=== PATIENT | male | born 1970 | race Caucasian/White ===

== ENCOUNTER 2023-06-11 11:31 | Day surgery (SDC) | payer BC, SELFPAY ==
[2023-06-11] VITALS (7 sets, daily range): BP systolic 107–150; BP diastolic 73–88; PULSE 50–68; RESP 16; TEMP 36.6–36.9; O2SAT 97–99; BMI 25.1
[2023-06-11] MEDS: Lactated Ringers 1,000 ML 15 ML IV (11:59)
--- NOTE | 2023-06-11 12:14 | H&P.OPEN ---
HPI - General HPI Narrative FABRIZIO DICK, is a 53 M who presents for screening colonoscopy. Patient reports that his mother had part of her colon removed for polyps but does not believe they are cancerous. He denies any abdominal pain or blood in the stool. He has never had a colonoscopy. [facility] Medical History Asthma High cholesterol Non-smoker Wears contact lenses Home Medications NK 05/29/23 [History Last Taken Unknown] Allergy/AdvReac Type Severity Reaction Status Date / Time amoxicillin Allergy Rash Verified 06/11/23 11:39 Family History (Updated 05/29/23 @ 10:36 by Michaelle Holden) Mother Colon polyps Surgical History History of hernia surgery Social History (Updated 05/29/23 @ 10:36 by Michaelle Holden) household members: spouse current occupational status: employed current occupation: [employer] Smoking Status: Never smoker Past Medical/Surgical History Planned Operation Planned Operative Procedure/s: COLONOSCOPY Previous Hospitalizations/Surgeries HX Hospitalizations: No Any Problems With Anesthesia: No You/Your Family Experience Fever (Hyperthermia) With Anes: No Cholinesterase deficiency: No Cardiovascular Hx Hypertension: No Respiratory Hx Sleep Apnea: No Hx Respiratory Tract Infection/Cold (presently): No Do You Snore Loudly (louder than talking or can be heard): No Do You Often Feel Tired/ Fatigued/ Sleepy Dring Daytime?: No Has Anyone Observed You Stop Breathing During Sleep?: No Result (for STOP score): Negative Smoking Status: Never smoker Neurological Does patient have nerve stimulator: No Miscellaneous Recent Exposure to Contagious Disease: No Allergies amoxicillin Allergy (Verified 06/11/23 11:39) Rash Discharge Is Pt Admitted From a Assisted, or a M[facility]: No Who Could Help: After D/C, Where Do you Plan to Go: Return Home Vital Signs Vital Signs Vital Signs: 06/11/23 11:50 06/11/23 11:50 Temperature 98.4 F Temperature Source Temporal Pulse Rate 64 Respiratory Rate 16 Respiratory Pattern Normal Blood Pressure 150/88 H Blood Pressure Mean 108 Blood Pressure Source Monitor Blood Pressure Position Semi-Fowlers Blood Pressure Location Left Arm Pulse Ox 99 Oxygen Delivery Method Room Air Weight Weight: 170 lb 3.15 oz Body Mass Index (BMI) 25.1 Physical Exam Const alert and oriented x3 HEENT normocephalic Eyes PERRL Resp normal respiratory effort and normal air movement Cardio regular rate and regular rhythm GI soft to palpation, non-tender and non-distended Extremity normal to inspection Assessment & Plan Assessment/Plan (1) Encounter for screening for malignant neoplasm of colon: PLAN: I explained endoscopy in detail to the patient. I explained the risks including but not limited to stroke or heart attack with anesthesia, perforation of the GI tract, bleeding, infection. I explained that any of these could necessitate further emergency surgery. The patient understands and all questions were answered sufficiently. The patient wishes to proceed with procedure. Cj Youngblood MD Pager: [facility] [address] [place] [address], [address] [place] [address] Office: Surgery Risks - Colonoscopy Risks Include but are not Limited To: Risks include but are not limited to: Bleeding, perforation requiring further surgery, inability to complete colonoscopy requiring barium enema.
--- NOTE | 2023-06-11 13:06 | OP.COLON_ITS ---
Patient Name: Ventura Puente Procedure Date: 06/11/2023 12:29 PM Date of : 1970 Age: 53 Procedure: Colonoscopy Indications: Screening for colorectal malignant neoplasm Providers: Cj Youngblood MD Medicines: Monitored Anesthesia Care Patient Profile: This is a 53 year old male. Refer to note in patient chart for documentation of history and physical. Last Colonoscopy: none. The patient's first colonoscopy is today. Complications: No immediate complications. Procedure: Pre-Anesthesia Assessment: - Prior to the procedure, a History and Physical was performed, and patient medications and allergies were reviewed. The patient's tolerance of previous anesthesia was also reviewed. The risks and benefits of the procedure and the sedation options and risks were discussed with the patient. All questions were answered, and informed consent was obtained. Prior Anticoagulants: The patient has taken no anticoagulant or antiplatelet agents. After reviewing the risks and benefits, the patient was deemed in satisfactory condition to undergo the procedure. After I obtained informed consent, the scope was passed under direct vision. Throughout the procedure, the patient's blood pressure, pulse, and oxygen saturations were monitored continuously. The pediatric colonoscope was introduced through the anus and advanced to the cecum, identified by appendiceal orifice and ileocecal valve. The colonoscopy was performed without difficulty. The patient tolerated the procedure well. The quality of the bowel preparation was good. The ileocecal valve, appendiceal orifice, and rectum were photographed. Scope In: 12:50:04 PM Scope Withdrawal Time 0 hours 6 minutes 18 seconds Scope Out: 1:00:41 PM Total Procedure Duration Time 0 hours 10 minutes 37 seconds Findings: The entire examined colon appeared normal on direct and retroflexion views. Impression: - The entire examined colon is normal on direct and retroflexion views. - No specimens collected. Recommendation: - Discharge patient to home. - Resume previous diet. - Continue present medications. - Repeat colonoscopy in 10 years for screening purposes. Procedure Code(s): --- Professional --- 51017, Colonoscopy, flexible; diagnostic, including collection of specimen(s) by brushing or washing, when performed (separate procedure) Diagnosis Code(s): --- Professional --- Z12.11, Encounter for screening for malignant neoplasm of colon CPT copyright 2021 [employer]. All rights reserved. The codes documented in this report are preliminary and upon lower school music teacher review may be revised to meet current compliance requirements. Cj Youngblood MD 06/11/2023 1:05:33 PM This report has been signed electronically. Number of Addenda: 0 Note Initiated On: 06/11/2023 12:29 PM
--- NOTE | 2023-06-11 13:06 | OP.CCLET_ITS ---
06/11/2023 Eleuterio Echevarria Re : Colonoscopy procedure for Ventura Puente Dear Wale This procedure was performed on Sunday, June 11, 2023. My impressions and recommendations are as follows: Impressions : - The entire examined colon is normal on direct and retroflexion views. - No specimens collected. Recommendations : - Discharge patient to home. - Resume previous diet. - Continue present medications. - Repeat colonoscopy in 10 years for screening purposes. My findings are described in the full procedure note, which is enclosed. If I can be of further assistance, please feel free to contact me at Doctor phone number(s): , Work: . Sincerely, Cj Youngblood MD 06/11/2023 1:05:33 PM This report has been signed electronically.
== END 2023-06-11 13:58 | disposition home or self-care (01) ==
LOC: EN 11:34 → AC 11:35
PROVIDERS: Visit Provider Surgery
PROC: 0DJD8ZZ Inspection of Lower Intestinal Tract, Via Natural or Artificial Opening Endoscopic (ICD-10-PCS; CPT 45378; principal; 2023-06-11 12:25)
DX: Z12.11 Encounter for screening for malignant neoplasm of colon (principal)
CPT/HCPCS: 45378; J7120; J2405

== ENCOUNTER → 2025-05-13 | Outpatient (CLI) | payer BC, SELFPAY ==
--- NOTE | 2025-05-13 17:50 | CT_ITS ---
PROCEDURE: SINUS/FACIAL BONE 05/13/2025 REASON FOR EXAM: SINUSITITS History of nasal polyps. History of prior nasal polyp removal TECHNIQUE: Procedure Code: CTSI Modality: CT Procedure: SINUS/FACIAL BONE Coronal and Sagittal reconstruction series were provided. One or more dose reduction techniques were used (e.g., Automated exposure control, adjustment of the mA and/or kV according to patient size, use of iterative reconstruction technique). RADIATION DOSE SUMMARY: CTDlvol: 33.06 mGy DLP: 800.79 mGycm COMPARISON: None FINDINGS: Frontal: Opacification of the frontal sinuses bilaterally. Ethmoid: Opacification of the ethmoid sinuses bilaterally with thinning of the bony septations. Sphenoid: Focal mucosal prominence along the anterior aspect of the sphenoid sinus. Maxillary: Opacification of the right maxillary sinus and mucosal thickening of the left maxillary sinus. There is obliteration of the right ostiomeatal complex with soft tissue prominence. The soft tissue progresses into the right nasal fossa. This is suggestive of polyposis. Turbinates: Enlargement of the inferior turbinate in the left nasal fossa. Nasal Septum: Nasal septum is midline. Mastoids/Middle Ears: Clear. Findings in keeping with nasal polyposis worse in the right nasal fossa. CT/Sinus/Facial Bone IMPRESSION: Pansinusitis with evidence of nasal polyposis worse in the right nasal fossa. Reading Location: [id number]
--- OUTSIDE RECORDS SUMMARY | 2025-05-13 17:50 | XMS RPT_ITS | CCD ---
Author Organization [facility] Care Team Providers Care Operations Asst Name Role Phone Dr. Eleuterio Echevarria Primary Care Provider Unavaila ble Michaelle Holden Attending Provider Unavailable Dr. Cj Youngblood Attending Provider [phone] Dr. Cj Youngblood Other Provider Care Physician, No Primary Primary Care Provider Unavailable Care Physician, No Primary Referring Provider Un available Michaelle Holden Attending Unavailable Eleuterio Echevarria Primary Care Unavailable Care Physician, No Primary Primary Care Unava ilable Care Physician, No Primary Referring Unava ilCj Shah Consulting Unavailable Cj Youngblood Attending Unavailable Care Physician, No Primary Primary Care Unava ilable Care Physician, No Primary Referring Unava ilCj Shah Attending Unavailable Allergies Allergy Classification Reported Allergen(s) Allergy Type Date of Onset Reaction(s) Facility (1 source) Amoxicillin Drug Allergy 06-11-2023 Rash [facility] (1 source) Amoxicillin Drug Allergy 06-11-2023 [facility] Repository Problems Problem Classification Problem Date Documented Da te Episodic/Chronic Other screening for suspected conditions (not mental disorders or infectious disease) (4 sources) Patient encounter status; Translations: [Encounter for screening for malignant neoplasm of colon] Onset: 06-17-2023 05-29-2023 Episodic Results Test Name Value Interpretation Reference Range Facil ity Colonoscopy Reporton 023 Colonoscopy Report [facility] Medical Records Department [address] [place] [address] Colonoscopy Report MR#: [id number] Acct: [id number] Name: FABRIZIO PUENTE Rep #: [id number] : 1970 53 From: Cj Youngblood MD PCP: Care Physician,No Primary Status:[facility] Patient Name: Fabrizio Puente Procedure Date: 06/11/2023 12:29 PM Date of : 1970 Age: 53 Procedure: Colonoscopy Indications: Screening for colorectal malignant neoplasm Providers: Cj Youngblood MD Medicines: Monitored Anesthesia Care Patient Profile: This is a 53 year old male. Refer to note in patient chart for documentation of history and physical. Last Colonoscopy: none. The patient's first colonoscopy is today. Complications: No immediate complications. Procedure: Pre-Anesthesia Assessment: - Prior to the procedure, a History and Physical was performed, and patient medications and allergies were reviewed. The patient's tolerance of previous anesthesia was also reviewed. The risks and benefits of the procedure and the sedation options and risks were discussed with the patient. All questions were answered, and informed consent was obtained. Prior Anticoagulants: The patient has taken no anticoagulant or antiplatelet agents. After reviewing the risks and benefits, the patient was deemed in satisfactory condition to undergo the procedure. After I obtained informed consent, the scope was passed under direct vision. Throughout the procedure, the patient's blood pressure, pulse, and oxygen saturations were monitored continuously. The pediatric colonoscope was introduced through the anus and advanced to the cecum, identified by appendiceal orifice and ileocecal valve. The colonoscopy was performed without difficulty. The patient tolerated the procedure well. The quality of the bowel preparation was good. The ileocecal valve, appendiceal orifice, and rectum were photographed. Scope In: 12:50:04 PM Scope Withdrawal Time 0 hours 6 minutes 18 seconds Scope Out: 1:00:41 PM Total Procedure Duration Time 0 hours 10 minutes 37 seconds Findings: The entire examined colon appeared normal on direct and retroflexion views. Impression: - The entire examined colon is normal on direct and retroflexion views. - No specimens collected. Recommendation: - Discharge patient to home. - Resume previous diet. - Continue present medications. - Repeat colonoscopy in 10 years for screening purposes. Procedure Code(s): --- Professional --- 37965, Colonoscopy, flexible; diagnostic, including collection of specimen(s) by brushing or washing, when performed (separate procedure) Diagnosis Code(s): --- Professional --- Z12.11, Encounter for screening for malignant neoplasm of colon CPT copyright 2021 [employer] [place] [employer]. All rights reserved. The codes documented in this report are preliminary and upon wincher review may be revised to meet current compliance requirements. Cj Youngblood MD 06/11/2023 1:05:33 PM This report has been signed electronically. Number of Addenda: 0 Note Initiated On: 06/11/2023 12:29 PM 06/11/23 1305 Date Cj Youngblood MD Cosigner Signature: Date (if indicated) CC: Dr. Cj Youngblood MD; Dr. Eleuterio Echevarria MD; No Primary Care Physician Date Dictated: 06/11/23 1229 Date Transcribed: Geothermal Heat Pump Machinist: KELBY Solomon [facility] Vital Signs Date Time Vital Sign Value Performing Clinician Faci lity 06-11-2023 13:25-0500 Body temperature 97.9 [degF] Dr. Mcclellan [facility] 06-11-2023 13:25-0500 Diastolic blood pressure 81 mm[Hg] Dr. Mcclellan [facility] 06-11-2023 13:25-0500 Heart rate 55 /min Dr. Mcclellan [facility] 06-11-2023 13:25-0500 Respiratory rate 16 /min Dr. Mcclellan [facility] 06-11-2023 13:25-0500 SaO2% (BldA) [Mass fraction] 98 % Dr. Mcclellan [facility] 06-11-2023 13:25-0500 Systolic blood pressure 122 mm[Hg] Dr. Mcclellan [facility] 06-11-2023 11:50-0500 Body height 175.[address] Mcclellan [facility] 06-11-2023 11:50-0500 Body mass index (BMI) [Ratio] 25.1 kg/m2 Dr. Eleuterio [facility] 06-11-2023 11:50-0500 Body weight 77.[address] Eleuterio Echevarria [facility] 05-29-2023 10:40-0500 Body mass index (BMI) [Ratio] 24.3 kg/m2 Dr. Mcclellan [facility] 05-29-2023 10:40-0500 Body weight 74.[address] Eleuterio Echevarria [facility] Encounters Encounter Date Encounter Type Care Provider Facility Start: 06-11-2023 End: 06-11-2023 ambulatory No Primary Care Physician Facility:[facility] Start: 06-11-2023 Non-patient / Non-visit Dr. Eleuterio english [facility] Start: 06-11-2023 End: 06-11-2023 Admission to same day surgery center Dr. Mcclellan [facility] Work Phone: Start: 06-11-2023 End: 06-11-[address] Mcclellan [facility] Work Phone: Start: 05-29-2023 ambulatory [facility] Facility:[facility] Start: 05-29-2023 Non-patient / Non-visit Dr. Eleuterio english [facility] Work Phone: Procedures Date Procedure Procedure Detail Performing Clinician Start: 06-11-[address] Eleuterio Echevarria Plan of Treatment Date Care Activity Detail Author Start: 06-11-2023 Patient discharge [facility] Colonoscopy [facility] Patient referral [facility] Work Phone: Payers Date Payer Category Payer Self-pay [id number] 2023 Unknown [id number] Unknown [employer] TPA [id number] Unknown [id number] Unknown [id number] Unknown [id number] Social History Date Type Detail Facility [facility]: [facility] Start: 1970 Sex Assigned At Male [facility] Goals Date Patient Goal Desired Activity /State Mental Status Date Assessment Result Facility 06-11-2023 Cognitive function Voice/Name [facility] Work Phone: Clinical Note 06-11-2023 Note Date & Type Note Facility 06-11-2023 Note [facility] Medical Records Department [address] [place] [address] History Physical Exam 06/11/23 1214 MR#: [id number] Acct: [id number] Name: FABRIZIO PUENTE Rep #: [id number] : 1970 53 From: Cj Youngblood MD PCP: Care Physician,No Primary Status:[facility] Location: [place] [address] HPI - General HPI Narrative FABRIZIO PUENTE, is a 53 M who presents for screening colonoscopy. Patient reports that his mother had part of her colon removed for polyps but does not believe they are cancerous. He denies any abdominal pain or blood in the stool. He has never had a colonoscopy. [facility] Medical History Asthma High cholesterol Non-smoker Wears contact lenses Home Medications NK 05/29/23 [History Last Taken Unknown] Allergy/AdvReac Type Severity Reaction Status Date / Time amoxicillin Allergy Rash Verified 06/11/23 11:39 Family History (Updated 05/29/23 @ 10:36 by Michaelle Holden) Mother Colon polyps Surgical History History of hernia surgery Social History (Updated 05/29/23 @ 10:36 by Michaelle Holden) household members: spouse current occupational status: employed current occupation: [employer] Smoking Status: Never smoker Past Medical/Surgical History Planned Operation Planned Operative Procedure/s: COLONOSCOPY Previous Hospitalizations/Surgeries HX Hospitalizations: No Any Problems With Anesthesia: No You/Your Family Experience Fever (Hyperthermia) With Anes: No Cholinesterase deficiency: No Cardiovascular Hx Hypertension: No Respiratory Hx Sleep Apnea: No Hx Respiratory Tract Infection/Cold (presently): No Do You Snore Loudly (louder than talking or can be heard): No Do You Often Feel Tired/ Fatigued/ Sleepy Dring Daytime?: No Has Anyone Observed You Stop Breathing During Sleep?: No Result (for STOP score): Negative Smoking Status: Never smoker Neurological Does patient have nerve stimulator: No Miscellaneous Recent Exposure to Contagious Disease: No Allergies amoxicillin Allergy (Verified 06/11/23 11:39) Rash Discharge Is Pt Admitted From a Care Home, or a Half-Way: No Who Could Help: After D/C, Where Do you Plan to Go: Return Home Vital Signs Vital Signs Vital Signs: 06/11/23 11:50 06/11/23 11:50 Temperature 98.4 F Temperature Source Temporal Pulse Rate 64 Respiratory Rate 16 Respiratory Pattern Normal Blood Pressure 150/88 H Blood Pressure Mean 108 Blood Pressure Source Monitor Blood Pressure Position Semi-Fowlers Blood Pressure Location Left Arm Pulse Ox 99 Oxygen Delivery Method Room Air Weight Weight: 170 lb 3.15 oz Body Mass Index (BMI) 25.1 Physical Exam Const alert and oriented x3 HEENT normocephalic Eyes PERRL Resp normal respiratory effort and normal air movement Cardio regular rate and regular rhythm GI soft to palpation, non-tender and non-distended Extremity normal to inspection Assessment Plan Assessment/Plan (1) Encounter for screening for malignant neoplasm of colon: PLAN: I explained endoscopy in detail to the patient. I explained the risks including but not limited to stroke or heart attack with anesthesia, perforation of the GI tract, bleeding, infection. I explained that any of these could necessitate further emergency surgery. The patient understands and all questions were answered sufficiently. The patient wishes to proceed with procedure. Cj Youngblood MD Pager: [facility] [address] [place] [address], [address] [place] [address] Office: Surgery Risks - Colonoscopy Risks Include but are not Limited To: Risks include but are not limited to: Bleeding, perforation requiring further surgery, inability to complete colonoscopy requiring barium enema. 06/11/23 1215 Cosigner Signature (if applicable): CC: Dr. Cj Youngblood MD; No Primary Care Physician Signed [facility] Procedure note 06-11-2023 Note Date & Type Note Facility 06-11-2023 Procedure note [facility] Procedure note 06-11-2023 Note Date & Type Note Facility 06-11-2023 Procedure note [facility] Evaluation note Note Date & Type Note Facility Evaluation note Diagnosis Onset Date Encounter for screening for malignant neoplasm of colon acute [facility] Work Phone: History and physical note Note Date & Type Note Facility History and physical note Note Date/Time June 11, 2023 12:16pm [facility] Medical Records Department [address] [place] [address] History & Physical Exam 06/11/23 1214 MR#: [id number] Acct: [id number] Name: FABRIZIO PUENTE Rep #:[id number] : 1970 53 From: Cj cohen MD PCP: Care Physician,No Primary Status :[facility] Location: [place] [address] HPI - General HPI Narrative FABRIZIO PUENTE, is a 53 M who presents for screening colonoscopy. Patient reportsthat his mother had part of her colon removed for polyps but does not believe they are cancerous. He denies any abdominal pain or blood in the stool. He hasnever had a colonoscopy. [facility] Medical History Asthma High cholesterol Non-smoker Wears contact lenses Home Medications NK 05/29/23 [History Last Taken Unknown] Allergy/AdvReac Type Severity Reaction Status Date / Time amoxicillin Allergy Rash Verified 06/11/23 11:39 Family History (Updated 05/29/23 @ 10:36 by Michaelle Holden) Mother Colon polyps Surgical History History of hernia surgery Social History (Updated 05/29/23 @ 10:36 by Michaelle Holden) household members: spouse current occupational status: employed current occupation: [employer] Smoking Status: Never smoker Past Medical/Surgical History Planned Operation Planned Operative Procedure/s: COLONOSCOPY Previous Hospitalizations/Surgeries HX Hospitalizations: No Any Problems With Anesthesia: No You/Your Family Experience Fever (Hyperthermia) With Anes: No Cholinesterase deficiency: No Cardiovascular Hx Hypertension: No Respiratory Hx Sleep Apnea: No Hx Respiratory Tract Infection/Cold (presently): No Do You Snore Loudly (louder than talking or can be heard): No Do You Often Feel Tired/ Fatigued/ Sleepy Dring Daytime?: No Has Anyone Observed You Stop Breathing During Sleep?: No Result (for STOP score): Negative Smoking Status: Never smoker Neurological Does patient have nerve stimulator: No Miscellaneous Recent Exposure to Contagious Disease: No Allergies amoxicillin Allergy (Verified 06/11/23 11:39) Rash Discharge Is Pt Admitted From a Care Home, or a Half-Way: No Who Could Help: After D/C, Where Do you Plan to Go: Return Home Vital Signs Vital Signs Vital Signs: 06/11/23 11:50 06/11/23 11:50 Temperature 98.4 F Temperature Source Temporal Pulse Rate 64 Respiratory Rate 16 Respiratory Pattern Normal Blood Pressure 150/88 H Blood Pressure Mean 108 Blood Pressure Source Monitor Blood Pressure Position Semi-Fowlers Blood Pressure Location Left Arm Pulse Ox 99 Oxygen Delivery Method Room Air Weight Weight: 170 lb 3.15 oz Body Mass Index (BMI) 25.1 Physical Exam Const alert and oriented x3 HEENT normocephalic Eyes PERRL Resp normal respiratory effort and normal air movement Cardio regular rate and regular rhythm GI soft to palpation, non-tender and non-distended Extremity normal to inspection Assessment & Plan Assessment/Plan (1) Encounter for screening for malignant neoplasm of colon: PLAN: I explained endoscopy in detail to the patient. I explained the risks including but not limited to stroke or heart attack with anesthesia, perforationof the GI tract, bleeding, infection. I explained that any of these could necessitate further emergency surgery. The patient understands and all questions were answered sufficiently. The patient wishes to proceed with procedure. Cj Youngblood MD Pager: [facility] [address] [place] [address], [address] [place] [address] Office: Surgery Risks - Colonoscopy Risks Include but are not Limited To: Risks include but are not limited to: Bleeding, perforation requiring further surgery, inability to complete colonoscopy requiring barium enema. 06/11/23 1215 <Electronically signed by Cj Youngblood MD> Cosigner Signature (if applicable): CC: Dr. Cj Youngblood MD; No Primary Care Physician~ Signed [facility] Work Phone: Chief Complaint and Reason for Visit Chief Complaint Amb Documentation Reason for Visit Encounter for screen ing for malignant neoplasm of colon Advance Directives No Advanced Directives Records Found Advance Directive Response Recorded Date/ Time Living Will No June 09, 023 9:29am Power of Landscape Drafter No June 09, 2023 9:29am Summary Purpose Family History No Family History Records Found Additional Source Comments Care Teams (unrecognized sec tion and content) Team Status: Active Member Role Status Dates Inga Milan MD Family Provider Active No Primary Care Physician Primary Care Provider Active Team Status: Active Member Role Status Dates Dr. Eleuterio Echevarria MD Primary Care Provider Active [facility] Attending Provider Active Team Status: Active Member Role Status Dates Dr. Cj Youngblood MD Attending Provider, Other Provider Active No Primary Care Physician Primary Care Provider, Refer ring Provider Active Team Status: Inactive Member Role Status Dates Dr. Cj Youngblood MD Attending Provider Active No Primary Care Physician Primary Care Provider, Refer ring Provider Active (unrecognized sect ion and content) No Status Records Found INFORMATION SOURCE (unrecogn ized section and content) DATE CREATED AUTHOR 06/19/2023 [facility] FOR RECORDS PERTAINING TO PATIENTS WHO ARE OR HAVE BEEN ENROLLED IN A CHEMICAL DEPENDENCY/SUBSTANCEABUSE PROGRAM, SOME INFORMATION MAY BE OMITTED. This clinical summary was aggregated from multiple sources. Caution should be exercised in using it in the provision of clinical care. This summary normalizes information from multiple sources, and as a consequence, information in this document may materially change the coding, format and clinical context of patient data. In addition, data may be omitted in some cases. CLINICAL DECISIONS SHOULD BE BASED ON THE PRIMARY CLINICAL RECORDS. [employer] provides no warranty or guarantee of the accuracy or completeness of information in this document.
== END | disposition home or self-care (01) ==
LOC: CT 17:48
PROVIDERS: Referring Provider Otolaryngology; Visit Provider Otolaryngology
DX: J32.8 Other chronic sinusitis (principal); J33.9 Nasal polyp, unspecified
CPT/HCPCS: 70486

== ENCOUNTER 2025-06-27 06:59 | Day surgery (SDC) | payer BC, SELFPAY ==
--- NOTE | 2025-06-24 06:38 | EKG12_ITS ---
Test Reason : PREOP Blood Pressure : */* mmHG Vent. Rate : 55 BPM Atrial Rate : 55 BPM P-R Int : 136 ms QRS Dur : 104 ms QT Int : 444 ms P-R-T Axes : 44 64 72 degrees QTcB Int : 424 ms Sinus bradycardia Otherwise normal ECG Confirmed by KARYN GONZALES, VEENA ([id number]), photo editor AGATA MCCALLUM ([id number]) on 06/24/2025 11:42:37 AM Referred By: Joseph Kumar Confirmed By: VEENA BOSS MD
[2025-06-24 08:06] LABS: Hematocrit 41.6 % (40-54); Hemoglobin 14.5 g/dL (13.0-16.5); Mean Corp Hgb Conc 34.9 g/dL (32-36); Mean Corpuscular Volume 88.3 fL (80-94); Mean Platelet Vol. 9.2 fl (6.2-12.0); Platelet Count 210 K/mm3 (150-450); RBC Distribution Width CV 13.2 % (11.6-14.6); RBC Distribution Width SD 42.9 fl (35.1-43.9); Red Blood Count 4.71 M/mm3 (4.6-6.2); White Blood Count 8.9 K/mm3 (4.4-11.0)
[2025-06-24 08:39] LABS: Anion Gap 10 (5-15); BUN 14 mg/dL (4-19); BUN/Creat Ratio 14.3 RATIO (10-20); Calcium,Total 9.9 mg/dL (7.6-11.0); Carbon Dioxide 26.5 mmol/L (21.0-32.0); Chloride 103 mmol/L (98-108); Glucose 106 mg/dL (70-99); Potassium 3.9 mmol/L (3.3-5.1)
[2025-06-27] VITALS (9 sets, daily range): BP systolic 134–157; BP diastolic 85–107; PULSE 53–69; RESP 14–20; TEMP 36.3–36.9; O2SAT 96–99; BMI 27.3
--- OUTSIDE RECORDS SUMMARY | 2025-06-27 07:02 | XMS RPT_ITS | CCD ---
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 Eleuterio Echevarria Primary Care Provider UnavailMichaelle Harmon Attending Provider Unavailable Dr. Cj Youngblood Attending Provider [phone] Dr. Cj Youngblood Other Provider Care Physician, No Primary Primary Care Provider Unavailable Care Physician, No Primary Referring Provider Un available Joseph Kumar Attending Unavailable Joseph Kumar Referring Unavailable Care Physician, No Primary Primary Care Unava ilable Joseph Kumar Referring Unavailable Care Physician, No Primary Primary Care Unava ilable Joseph Kumar Attending Unavailable Allergies Allergy Classification Reported Allergen(s) Allergy Type Date of Onset Reaction(s) Facility (1 source) Amoxicillin Drug Allergy 06-11-2023 Rash [facility] (1 source) Amoxicillin Drug Allergy 06-11-2023 [facility] Repository Problems Problem Classification Problem Date Documented Da te Episodic/Chronic Other screening for suspected conditions (not mental disorders or infectious disease) (2 sources) Patient encounter status; Translations: [Encounter for screening for malignant neoplasm of colon] 05-29-2023 Episodic Other upper respiratory infections (1 source) Other chronic sinusitis; Translations: [Other chronic sinusitis] Onset: 05-19-2025 Chronic Results Test Name Value Interpretation Reference Range Facil ity Sinus/Facial Boneon 05-13-20 Sinus/Facial Bone [facility] Imaging Services [address] [address] Sinus/Facial Bone MR#: [id number] Acct: [id number] Name: FABRIZIO DICKARD Rep #: [id number] : 1970 M 55 From: Pietro lew MD PCP: Care Physician,No Primary Status: REG CLI Study: Sinus/Facial Bone Date of Exam: 05/13/25 Exam# [id number] Ordering Dr: Joseph Kumar MD PROCEDURE: SINUS/FACIAL BONE 05/13/2025 REASON FOR EXAM: SINUSITITS History of nasal polyps. History of prior nasal polyp removal TECHNIQUE: Procedure Code: CTSI Modality: CT Procedure: SINUS/FACIAL BONE Coronal and Sagittal reconstruction series were provided. One or more dose reduction techniques were used (e.g., Automated exposure control, adjustment of the mA and/or kV according to patient size, use of iterative reconstruction technique). RADIATION DOSE SUMMARY: CTDlvol: 33.06 mGy DLP: 800.79 mGycm COMPARISON: None FINDINGS: Frontal: Opacification of the frontal sinuses bilaterally. Ethmoid: Opacification of the ethmoid sinuses bilaterally with thinning of the bony septations. Sphenoid: Focal mucosal prominence along the anterior aspect of the sphenoid sinus. Maxillary: Opacification of the right maxillary sinus and mucosal thickening of the left maxillary sinus. There is obliteration of the right ostiomeatal complex with soft tissue prominence. The soft tissue progresses into the right nasal fossa. This is suggestive of polyposis. Turbinates: Enlargement of the inferior turbinate in the left nasal fossa. Nasal Septum: Nasal septum is midline. Mastoids/Middle Ears: Clear. Findings in keeping with nasal polyposis worse in the right nasal fossa. CT/Sinus/Facial Bone IMPRESSION: Pansinusitis with evidence of nasal polyposis worse in the right nasal fossa. Reading Location: [id number] CC: Dr. Joseph Kumar MD; No Primary Care Physician Manager Concrete: Signed Normal [facility] Vital Signs Date Time Vital Sign Value Performing Clinician Derricki walker 06-11-2023 13:25-0500 Body temperature 97.9 [degF] Dr. Eleuterio Echevarria [facility] 06-11-2023 13:25-0500 Diastolic blood pressure 81 mm[Hg] Dr. Mcclellan [facility] 06-11-2023 13:25-0500 Heart rate 55 /min Dr. Eleuteroi [facility] 06-11-2023 13:25-0500 Respiratory rate 16 /min Dr. Eleuterio Echevarria [facility] 06-11-2023 13:25-0500 SaO2% (BldA) [Mass fraction] 98 % Dr. Mcclellan [facility] 06-11-2023 13:25-0500 Systolic blood pressure 122 mm[Hg] Dr. Eleuterio Echevarria [facility] 06-11-2023 11:50-0500 Body height 175.[address] Mcclellan [facility] 06-11-2023 11:50-0500 Body mass index (BMI) [Ratio] 25.1 kg/m2 Dr. Mcclellan [facility] 06-11-2023 11:50-0500 Body weight 77.[address] Mcclellan [facility] 05-29-2023 10:40-0500 Body mass index (BMI) [Ratio] 24.3 kg/m2 Dr. Mcclellan [facility] 05-29-2023 10:40-0500 Body weight 74.[address] Mcclellan [facility] Encounters Encounter Date Encounter Type Care Provider Facility Start: 06-27-2025 ambulatory [facility] Facility:[facility] Start: 05-13-2025 End: 05-13-2025 ambulatory [facility] Facility:[facility] Start: 06-11-2023 Non-patient / Non-visit Dr. Eleuterio english [facility] Start: 06-11-2023 End: 06-11-2023 Admission to same day surgery center Dr. Eleuterio Echevarria [facility] Work Phone: Start: 06-11-2023 End: 06-11-[address] Mcclellan [facility] Work Phone: Start: 05-29-2023 Non-patient / Non-visit Dr. Eleuterio english [facility] Work Phone: Procedures Date Procedure Procedure Detail Performing Clinician Start: 06-11-[address] Eleuterio Echevarria Plan of Treatment Date Care Activity Detail Author Start: 06-11-2023 Patient discharge [facility] Colonoscopy [facility] Patient referral [facility] Work Phone: Payers Date Payer Category Payer Self-pay [id number] 2025 Unknown [id number] Unknown [employer] TPA [id number] Unknown [id number] Unknown [id number] Social History Date Type Detail Facility Start: [facility] Start: 1970 Sex Assigned At Male [facility] Goals Date Patient Goal Desired Activity /State Mental Status Date Assessment Result Facility 06-11-2023 Cognitive function Voice/Name [facility] Work Phone: Procedure note 06-11-2023 Note Date & Type Note Facility 06-11-2023 Procedure note [facility] Procedure note 06-11-2023 Note Date & Type Note Facility 06-11-2023 Procedure note [facility] Evaluation note Note Date & Type Note Facility Evaluation note Diagnosis Onset Date Encounter for screening for malignant neoplasm of colon acute [facility] Work Phone: History and physical note Note Date & Type Note Facility History and physical note Note Date/Time June 11, 2023 12:16pm [facility] Medical Records Department [address] [place] [address] History & Physical Exam 06/11/23 1214 MR#: [id number] Acct: [id number] Name: FABRIZIO DICK Rep #:[id number] : 1970 53 From: Cj cohen MD PCP: Care Physician,No Primary Status :REG [facility] Location: AC14-1 HPI - General HPI Narrative FABRIZIO DICK, is a 53 M who presents for screening colonoscopy. Patient reportsthat his mother had part of her colon removed for polyps but does not believe they are cancerous. He denies any abdominal pain or blood in the stool. He hasnever had a colonoscopy. [facility] Medical History Asthma High cholesterol Non-smoker Wears [...] Rash Discharge Is Pt Admitted From a Penitentiary, or a Snf: No Who Could Help: After D/C, Where [...] proceed with procedure. Cj Youngblood MD Pager: [facility] [address] [place] [address], [address] [place] [phone] Office: Surgery Risks - Colonoscopy Risks Include but are not Limited To: Risks include but are not limited to: Bleeding, perforation requiring further surgery, inability to complete colonoscopy requiring barium enema. 06/11/23 1215 <Electronically signed by Cj Youngblood MD> Cosigner Signature (if applicable): CC: Dr. Cj Youngblood MD; No Primary Care Physician~ Signed [facility] Work Phone: Chief Complaint and Reason for Visit Chief Complaint Amb Documentation Reason for Visit Encounter for screen ing for malignant neoplasm of colon Advance Directives No Advanced Directives Records Found Advance Directive Response Recorded Date/ Time Living Will No June 09 9:29am Power of Final Tester No June 09, 2023 9:29am Summary Purpose Family History No Family History Records Found Additional Source Comments Care Teams (unrecognized sec tion and content) Team Status: Active Member Role Status Dates Inga Milan MD Family Provider Active No Primary Care Physician Primary Care Provider Active Team Status: Active Member Role Status Dates Dr. Eleuterio Echevarria MD Primary Care Provider Active Michaelle Holden Attending Provider Active Team Status: Active Member [...] ized section and content) DATE CREATED AUTHOR 05/24/2025 [facility] FOR RECORDS PERTAINING TO PATIENTS WHO [...] BE BASED ON THE PRIMARY CLINICAL RECORDS. [employer] provides no warranty or guarantee of the accuracy or completeness of information in this document.
[2025-06-27] MEDS: Lactated Ringers 1,000 ML 15 ML IV (07:32)
[2025-06-27] MEDS: Oxymetazoline 0.05% 1 SPRAY SPRAY.BTL 3 SPRAY NASAL (07:33)
--- NOTE | 2025-06-27 07:48 | PRE.ANES_ITS ---
ASA Classification* ASA Classification ASA Classification: 2 Assessment & Plan Anesthesia* Anesthesia Assessment Anesthesia Assessment: Discussed sedation and/or anesthesia options, risks, benefits, and alternatives with patient/parents/legal guardian/POA. Questions invited. The patient/parents/legal guardian/POA seems to understand and agrees to proceed with anesthesia plan. Reviewed the physical assessment, medical history, allergy history and patient home medications list prior to surgery/procedure/anesthetic and documented any changes. Performed airway and anesthesia risk assessments. Anesthesia Type Anesthesia Type: General History Source History Obtained from:: Patient and Chart Anesthesia Focused Assessment* Temperature: 98.4 F Pulse Rate: 69 Blood Pressure: 157/88 Respiratory Rate: 18 Pulse Ox: 97 Oxygen Delivery Method: Room Air Airway Assessment Mouth opens: 2 cm Mallampati Score: III Teeth Condition: Intact Neck Range of motion (ROM): Full ROM Labs Anesthesia Preop lab: CBC WBC, (4.4-11.0) 8.9 K/mm3 06/24/25, 06:39 RBC, (4.6-6.2) 4.71 M/mm3 06/24/25, 06:39 Hgb, (13.0-16.5) 14.5 g/dL 06/24/25, 06:39 Hct, (40-54) 41.6 % 06/24/25, 06:39 Plt Count, (150-450) 210 K/mm3 06/24/25, 06:39 CHEMISTRY Potassium, (3.3-5.1) 3.9 mmol/L 06/24/25, 06:39 Sodium, (133-145) 139 mmol/L 06/24/25, 06:39 BUN, (4-19) 14 mg/dL 06/24/25, 06:39 Creatinine, (0.70-1.20) 0.97 mg/dL 06/24/25, 06:39 Glucose, (70-99) 106 mg/dL H 06/24/25, 06:39 TSH, (0.358-3.74) 1.27 uIU/mL 03/03/12, 09:28 COAG Pre-Assessment Diagnosis/Proposed Procedure Planned Operative Procedure(s): REVISION FESS WITH NAVIGATION Anesthesia History Anesthesia History - city constable: Anesthesia History - city constable Hx Hospitalization No 06/22/25 15:42 Any Problems With Anesthesia No 06/22/25 15:42 Cholinesterase deficiency No 06/22/25 15:42 You/Your Family Experience No 06/22/25 15:42 fever (hyperthermia) with Relationship Recent Exposure to Contagious No 06/27/25 07:23 Disease Does patient have nerve No 06/22/25 15:42 stimulator Patient instructed to have device shut off --Does patient have Pacemaker No 06/27/25 07:23 or ICD? When Was Last Pacemaker Check QUESTION #4 FULL TEXT: You/Your Family Experience fever (hyperthermia) with Anesthesia Any additional information?: No Last Oral Intake Last Oral intake: Last Oral Intake NPO since 18:30 06/27/25 07:23 Meds taken in AM with sips of No 06/27/25 07:23 water? Meds patient instructed to take am of surgery Any additional information?: No PONV PONV - city constable: PONV - city constable Female No 06/22/25 15:42 HX of Motion Sickness No 06/22/25 15:42 HX of N/V After Surgery No 06/22/25 15:42 Non-Smoker Yes 06/22/25 15:42 Duration of Surgery greater Yes 06/22/25 15:42 than 60 minutes Number of Risk Factors 2 06/22/25 15:42 PONV Score Moderate Risk 06/22/25 15:42 Any additional information?: No Height & Weight Height & Weight: Anesthesia: Height & Weight Height 5 ft 9 in 06/27/25 07:23 Weight: 84 kg 06/27/25 07:23 Body Mass Index (BMI) 27.3 06/27/25 07:23 Respiratory Assessment Respiratory Assessment - city constable: Respiratory Tract Infection Hx - city constable Hx Respiratory Tract Infection No 06/22/25 15:42 Any additional information?: No STOP Sleep Apnea STOP Sleep Apnea - city constable: STOP Sleep Apnea - city constable Hx Hypertension No 06/22/25 15:42 Hx Sleep Apnea No 06/22/25 15:42 CPAP BIPAP Do you snore loudly (louder Yes 06/22/25 15:42 than talking or can be heard Do you often feel tired/ No 06/22/25 15:42 fatigued/ sleepy during daytime? Has anyone observed you stop Yes 06/22/25 15:42 breathing during sleep? STOP Results Positive 06/22/25 15:42 QUESTION #5 FULL TEXT : Do you snore loudly (louder than talking or can be heard through closed doors)? Any additional information?: No Tobacco Use History Tobacco Use History - city constable: Tobacco Use History - city constable Tobacco Use Smoking Status Never smoker 06/22/25 15:42 Hx Tobacco Use No 06/22/25 15:42 Years Smoking Packs Smoked per Day Smoking Cessation Date was within the last 15 years Hx Smoking Cessation Date Hx Smoking Cessation Counseling Any additional information?: No Hematologic Medial History Hematologic Hx - city constable: Hematologic Medical Hx - wellness health coach Hx of Blood Transfusion No 06/22/25 15:42 Hx of Transfusion in last 3 No 06/22/25 15:42 Months Date of Last Transfusion (if within last 3 months) Ever experience any problems No 06/22/25 15:42 with transfusion(s)? Specify any problems Hx of Preganancy in last 3 N/A 06/22/25 15:42 Months Nurse Filling Out Transfusion DSCHRIBER 06/22/25 15:42 & Questions: Date: 06/22/25 06/22/25 15:42 Time: 15:43 06/22/25 15:42 Patient unable to answer at this time (ie. confused, unrespo Any additional information?: No /Reproduction History /Reproductive History - city constable: /Reproductive Hx- city constable Hx Now No 06/22/25 15:42 Gestational Age (in weeks): EDC: Hx Hx Para Hx Section SAB No 06/22/25 15:42 Does the father of the baby or his family experience fever w Father of the baby Malignant Hypertension history comment Any additional information?: No Active Medications Active Medications: Current Medications Generic Name Dose Route Start Last Admin Trade Name Freq PRN Reason Stop Dose Admin Lactated Ringer's 1,000 mls @ 15 mls/hr 06/27/25 07:15 06/27/25 07:32 IV 15 mls/hr .Q48H ASHIA Administration Oxymetazoline HCl 3 spray 06/27/25 08:30 06/27/25 07:33 Oxymetazoline 0.05% 1 Willet Willet.Btl NASAL 06/27/25 08:31 3 spray X1 ONE Administration PFSH Medical History (Updated 06/22/25 @ 15:50 by Brenda Trejo) History of steroid therapy Leg cramps Wears contact lenses High cholesterol Non-smoker Asthma Home Medications ?Medication ?Instructions ?Recorded ?Last Taken ?Type cholecalciferol (vitamin D3) 25 25 mcg PO DAILY Unknown History mcg (1,000 unit) capsule (Vitamin D3) magnesium 200 mg tablet 400 mg PO DAILY 06/22/25 Unk nown History Allergy/AdvReac Type Severity Reaction Status Date / Time amoxicillin Allergy Rash Verified 06/27/25 07:22 Family History (Updated 05/29/23 @ 10:36 by Michaelle Holden) Mother Colon polyps Surgical History (Updated 06/22/25 @ 15:50 by Brenda Trejo) History of wisdom tooth extraction Hx of colonoscopy Hx of nasal septoplasty History of hernia surgery Social History (Updated 05/29/23 @ 10:36 by Michaelle Holden) household members: spouse current occupational status: employed current occupation: [employer] Smoking Status: Never smoker Review of Systems (Anesthesia) ROS Narrative System reviewed and no additional complaints, except as documented. Allergic/Immunologic Allergic/Immunologic: Reports asthma Physical Exam Const alert and oriented x3 Orientation / Consciousness: awake HEENT dentition normal Neck full ROM General: normal visual inspection Resp normal respiratory effort, normal air movement and clear to auscultation bilaterally Auscultation: clear to auscultation bilaterally Cardio regular rate, regular rhythm and no murmurs Neuro oriented x3
--- NOTE | 2025-06-27 07:56 | DS.PCM_ITS ---
Providers Primary Care Physician: No Primary Care Phys Reason For Visit: Revision Functional Endoscopic Sinus Surgery with Medications at Discharge Home Medications cholecalciferol (vitamin D3) 25 mcg (1,000 unit) capsule (Vitamin D3) 25 mcg PO DAILY 06/22/25 magnesium 200 mg tablet 400 mg PO DAILY 06/22/25 Weight / BMI Weight Weight: 84 kg Body Mass Index (BMI) 27.3 ABG / Lab / Microbiology Data 06/24/25 06:39 06/24/25 06:39 D/C Instructions Discharge Activity: Return to Normal Activity Additional Activity Instructions: Start saline irrigation 4x/day on 06/28/25. No nose blowing DC O2, CPAP, BIPAP Needs Home O2 Discharge instructions: No Please Follow Up With: Joseph Kumar MD When: next week Meaningful Use Info Meaningful Use Meaningful Use Diagnoses (Choose all that apply): None applicable Discharge Plan Admission Attending Provider: Joseph Kumar Primary Care Provider: Care Physician,No Primary Instructions Print Language: [place] Discharge Orders/Prescriptions Prescriptions: No Action cholecalciferol (vitamin D3) [Vitamin D3] 25 mcg (1,000 unit) capsule 25 mcg PO DAILY magnesium 200 mg tablet 400 mg PO DAILY Referrals / Follow Up: Care Physician,No Primary [Primary Care Provider, Medical] Disposition Disposition (needs filled in before D/C Order can be placed): Home, Self Care
--- NOTE | 2025-06-27 08:30 | ETH_PTH ---
PATIENT: FABRIZIO DICK LOC: [facility] U#:[id number] AGE/SX: 55/M ROOM: RE06/27/[address]: Dr. Joseph Kumar MD : 1970 BED: DIS: 06/27/2025 SPEC #: [id number] RECD: 06/27/25 11:43 STATUS: NATE REQ #: [id number] DARRON: 06/27/25 08:[address]: Joseph Kumar DEPT: SURGICAL PATHOLOGY RECD BY: Lorenzo Crow ENTERED: 06/27/25 13:38 SP TYPE: ETH TISS OTHR DR: No Primary Care Phys Tissues: A - Ethmoid sinus, NOS B - Ethmoid sinus, NOS Procedures: Decalcification bone/plaque Surgery Specimen Level IV HEADER OPERATION: Revision functional endoscopic sinus surgery with Navigation PRE-OP DIAGNOSIS: Chronic sinusitis, nasal polyp, allergic rhinitis TISSUE SUBMITTED: A- Right sinus content, B- Left sinus content MICROSCOPIC DIAGNOSIS A. Sinus contents, right, revision functional endoscopic sinus surgery: * Fragments of benign respiratory type mucosa and bone with chronic inflammation and inflammatory polyp formation B. Sinus contents, left, revision functional sinus surgery: * Fragments of benign respiratory type mucosa and bone with chronic inflammation and inflammatory polyp formation MICROSCOPIC DESCRIPTION Slides are reviewed. GROSS DESCRIPTION Received in 2 formalin containers labeled with the patient's name and date of . Designated as: A. Right sinus content is a 5.3 x 4.5 x 1.2 cm aggregate of red foamy clotted blood, connell tissue fragments and flecks of apparent bone. Gate Watch sections are submitted in 1 cassette, following decalcification. B. Left sinus content is a 9.5 x 6.6 x 0.9 cm aggregate of red filmy clotted blood and connell tissue fragments. Definitive bone is not grossly identified. Gate Watch sections are submitted 1 cassette. [place] 06/27/2025 CPT:46106a7,04522
[2025-06-27] MEDS: Midazolam 2 MG/2 ML Syringe IV (08:32)
[2025-06-27] MEDS: Lidocaine 1% (5 ml sdv) 5 ML Vial IV (08:37)
[2025-06-27] MEDS: Lidocaine 1% /Epi 1:100 (20ml) 20 ML Vial (08:40)
[2025-06-27] MEDS: Oxymetazoline 0.05% 1 SPRAY SPRAY.BTL 15 SPRAY (08:40)
[2025-06-27] MEDS: fentaNYL 100 MCG/2 ML Ampul 125 MCG IV (09:22)
--- NOTE | 2025-06-27 09:40 | OP.PCM_ITS ---
Operative Report (Standard) Operative Information Date of Procedure: 06/27/25 Pre-Operative Diagnosis: chronic sinusitis with polyposis Post-Operative Diagnosis: same Surgery/Procedure Performed: Bilateral total ethmoidectomy Bilateral maxillary antrostomy with removal of tissue Use of navigation child care team lead: No Type of Anesthesia: General RN Documented Start/Stop Times: Operation Date: 06/27/25 08:30 Case Time Into Pre-Op 06/27/25 07:01 Procedure Start Time: 08:55 Procedure Stop Time: 09:38 Select all DRAINS/GRAFTS/IMPLANTS that apply: None Estimated Blood Loss: 30 cc Specimen collected: Yes Description of specimen(s) removed: sinus contents Description of surgery: The patient was taken to the operating room on 06/27/2025. The patient was placed in the supine position on the operating table. The patient was given sufficient general endotracheal anesthesia. The head of bed was elevated 30 degrees. The navigation system was placed and verified per protocol and found to be accurate. 0 and 30 degrees rigid nasal endoscopes were used throughout the entire case. The middle turbinate uncinate process and polyps were injected with 1% lidocaine with epinephrine bilaterally. The right middle turbinate was medialized with a [place] elevator. Polyp was removed from the middle meatus using a sinus shaver. The remaining uncinate process was taken down using a microdebrider. The maxillary antrostomy was opened with a backbiter and polyp was removed from the antrostomy. Tissue was removed from the maxillary sinus using a microdebrider with a 30 degree rigid nasal endoscope for visualization. Next, the ethmoid bulla was opened with a small curette. Anterior and posterior ethmoidectomy were then carried out using curette, sinus shaver and 45 degree Blakesley Mihai forceps. Ethmoid cells were verified for relation to the skull base and orbit prior to being entered with the navigation system. I then placed Afrin pledgets into the sinonasal cavity. Next attention was turned to the left side. The middle turbinate was medialized with a [place] elevator. A large polyp was removed from the middle meatus using a sinus shaver. The the maxillary antrostomy was created with the microdebrider. Tissue was removed from the maxillary sinus using a microdebrider with a 30 degree rigid nasal endoscope for visualization. The ethmoid bulla was opened with a small curette. Anterior posterior ethmoidectomy were then carried out using a sinus shaver curette and Blakesley Mihai forceps. Ethmoid cells were verified for relation to the skull base and orbit prior to being entered with the navigation system. Hemostasis was then achieved using Afrin pledgets and some sparing suction cautery. The pledgets were then removed bilaterally and Hemoblast powder was applied bilaterally for absolute hemostasis. The procedure was then terminated. The patient was then awoken and brought to the recovery room in stable condition. blood loss approximately 30 cc. replacement none. Sponge, needle, instrument count were correct at the end of the procedure. Surgical Findings: extensive polyposis bilaterally Complications Complications: No
--- NOTE | 2025-06-27 10:00 | PCM.POST.ANE ---
Anesthesia: Postop Eval I Current Vital Signs Temperature: 98.3 F Pulse Rate: 64 Blood Pressure: 134/85 Respiratory Rate: 20 Pulse Ox: 96 Assessment Airway patent: Yes Spontaneous unlabored respirations: Yes nausea: No Vomiting: No Anesthesia Complication: No Fluid Hydration Crystalloid volume administer (ml): 1,500 Total IV fluid infused: 1,500 Progress Note Anesthesia document: Postop Eval 1 completed: Yes
--- NOTE | 2025-06-27 11:16 | POSTOPAN2_ITS ---
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.CSIR Spontaneous unlabored Yes 06/27/25 10:10 HEMODIALYSIS PATIENT CARE SPECIALIST.CSIR respirations Mental status nausea No 06/27/25 10:10 HEMODIALYSIS PATIENT CARE SPECIALIST.CSIR Vomiting No 06/27/25 10:10 HEMODIALYSIS PATIENT CARE SPECIALIST.CSIR Anesthesia Postop Eval I: Fluid Summary Crystalloid volume administer 1,500 06/27/25 10:10 HEMODIALYSIS PATIENT CARE SPECIALIST.CSIR (ml) Colloids volume administered ( ml) Blood Product volume administered (ml) Total IV fluid infused 1,500 06/27/25 10:10 HEMODIALYSIS PATIENT CARE SPECIALIST.CSIR Anesthesia Postop Eval I: Summary Notes Anesthesia Complication No 06/27/25 10:10 HEMODIALYSIS PATIENT CARE SPECIALIST.CSIR Anesthesia Complication Comment: Post-operative progress note Anesthesia: Postop Eval II Evaluation Mental status: Awake and Calm Pain Level: 1 nausea: No Vomiting: No Complications Anesthesia Complication: No
--- NOTE | 2025-06-27 11:16 | PCM.POSTANE2 ---
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 Spontaneous unlabored Yes 06/27/25 10:10 SANDSTONE INSPECTOR REPAIRER.CSIR respirations Mental status nausea No 06/27/25 10:10 SANDSTONE INSPECTOR REPAIRER.CSIR Vomiting No 06/27/25 10:10 SANDSTONE INSPECTOR REPAIRER.CSIR Anesthesia Postop Eval I: Fluid Summary Crystalloid volume administer 1,500 06/27/25 10:10 SANDSTONE INSPECTOR REPAIRER.CSIR (ml) Colloids volume administered ( ml) Blood Product volume administered (ml) Total IV fluid infused 1,500 06/27/25 10:10 SANDSTONE INSPECTOR REPAIRER.CSIR Anesthesia Postop Eval I: Summary Notes Anesthesia Complication No 06/27/25 10:10 SANDSTONE INSPECTOR REPAIRER.CSIR Anesthesia Complication Comment: Post-operative progress note Anesthesia: Postop Eval II Evaluation Mental status: Awake and Calm Pain Level: 1 nausea: No Vomiting: No Complications Anesthesia Complication: No
== END 2025-06-27 11:12 | disposition home or self-care (01) ==
LOC: SDC 07:02 → AC 07:04
PROVIDERS: Referring Provider Otolaryngology; Visit Provider Otolaryngology
PROC: (CPT 31267; principal; 2025-06-27 08:00)
DX: J32.8 Other chronic sinusitis (principal); J33.9 Nasal polyp, unspecified; J30.89 Other allergic rhinitis; J30.81 Allergic rhinitis due to animal (cat) (dog) hair and dander; J30.1 Allergic rhinitis due to pollen
CPT/HCPCS: 31267; 31255; 00160; 36415; 80048; 85027; 88305; 88311; 93005; J2405